=== PATIENT | female | born 2000 | race Caucasian/White ===

== ENCOUNTER → 2018-02-16 | Outpatient (CLI) | payer OTHER ==
[2018-02-16 15:11] LABS: BASO % 0.3 % (0.0-1.0); EOS # 0.1 10^3/uL (0.0-0.50); EOS % 0.8 % (0.0-3.0); HEMATOCRIT 37.2 % (36.0-47.0); HEMOGLOBIN 12.5 g/dl (12.0-15.5); IMMATURE GRANULOCYTE % 0.5 % (0-3.0); LYMPH # 1.9 10^3/uL (1.5-6.5); LYMPH % 19.2 % (24.0-44.0); MEAN CORPUSCULAR HEMOGLOBIN 28.7 pg (27.0-33.0); MEAN CORPUSCULAR HGB CONC 33.6 g/dl (32.0-36.5); MEAN CORPUSCULAR VOLUME 85.5 fl (80.0-96.0); MONO # 0.8 10^3/uL (0.0-0.8); MONO % 7.8 % (0.0-5.0); NEUTROPHILS # 7.1 10^3/uL (1.8-7.7); NEUTROPHILS % 71.4 % (36.0-66.0); PLATELET COUNT, AUTOMATED 311 10^3/uL (150-450); RED BLOOD COUNT 4.35 10^6/uL (4.00-5.40); RED CELL DISTRIBUTION WIDTH 12.9 % (11.5-14.5)
[2018-02-16 16:50] LABS: CHLAMYDIA DNA AMPLIFICATION NEGATIVE (NEGATIVE); GC DNA AMPLIFICATION NEGATIVE (NEGATIVE)
[2018-02-16 17:06] LABS: HBsAg Prenatal NEGATIVE (NEGATIVE); HIV 1&2 SCREEN CENTAUR NEGATIVE (NEGATIVE); RUBELLA IgG QUALITATIVE IMMUNE (IMMUNE)
[2018-02-16 17:06] LABS: HEPATITIS C VIRUS ABY INDEX 0.1 INDEX (<0.8)
== END ==
LOC: M LAB 14:22
DX: Z34.81 Encounter for supervision of other normal pregnancy, first trimester (principal); Z3A.09 9 weeks gestation of pregnancy; Z36.89 Encounter for other specified antenatal screening
CPT/HCPCS: 86762

== ENCOUNTER → 2018-03-30 | Outpatient (CLI) | payer OTHER ==
--- NOTE | 2018-03-30 15:56 | REP ---
Obstetric sonography: History: Supervision of for anatomy. Findings: Scanning through the gravid uterus demonstrates a viable single intrauterine gestation in oblique, head to the maternal right lie. motion is observed and heart rate is recorded at 152 beats per minute. An anterior grade 1 placenta is seen without evidence of previa. Amniotic fluid is subjectively normal. Closed cervical length is measured at 4.6 cm, viewed transabdominally. No extrauterine abnormalities observed. There are small bilateral choroid plexus cysts. No other anomaly is seen. Face and profile, lungs, four-chamber heart and outflow tract views are less than optimally seen due to position. The following additional anatomic structures are identified and felt to be unremarkable: cranium, cavum, cerebellum and posterior fossa, diaphragm, left-sided stomach, abdominal wall cord insertion, three-vessel umbilical cord, kidneys and bladder, spine, upper and lower extremities. Biometry chart: BPD 4.4 cm = 19 weeks 3 days Head circumference 17.1 cm = 19 weeks 5 days Abdominal circumference 14.4 cm = 19 weeks 5 days Femur length 3.1 cm = 19 weeks 5 days Humeral length 2.9 cm = 19 weeks 3 days HC/AC ratio normal 1.19. Cephalic index normal 0.71. Estimated weight 308 grams, 0 pounds 10 ounces, 55th percentile for 19 weeks 3 days. Impression: Viable single intrauterine gestation at 19 weeks 3 days by today's composite sonographic criteria. CHARISSA by today's sonography August 21, 2018. anatomic survey is less than complete regarding the face, heart and lungs. There are small bilateral choroid plexus cysts. Electronically Signed by Alton Beltran MD 03/30/2018 08:01 P
== END ==
LOC: M RAD 12:24
PROVIDERS: ATTEND Advanced Practice Midwife
DX: Z36.9 Encounter for antenatal screening, unspecified (principal); Z3A.19 19 weeks gestation of pregnancy

== ENCOUNTER → 2018-05-02 | Outpatient (CLI) | payer OTHER ==
--- NOTE | 2018-05-03 05:18 | REP ---
Clinical: Anatomical evaluation. Comparison: 03/30/2018 . Findings: Examination demonstrates a single live intrauterine in transverse (head to maternal right) presentation. motion is identified by technologist. Placenta is noted anterior and grade there are grade 1 without evidence for placenta previa or abruption. Amniotic fluid volume is normal. Cervix measures 5.7 cm in length and appears closed. No evidence for nuchal cord. Gestational age by LMP 23 weeks 0 days with CHARISSA 08/29/2018 . Gestational age by current measurements 24 weeks 3-day with CHARISSA is 08/19/2018 . FHR equals 155 beats per minute. Estimated weight 687 grams ( 89th percentile). Anatomical assessment demonstrates normal structures including cranium, cavum, cerebellum/posterior fossa, facial features, lungs, four-chamber heart/ventricular outflow tracts, diaphragm, stomach, cord insertion/three-vessel cord, kidneys/bladder, spine, and extremities. Note is made of small cord plexus cysts. Impression: 1. Single live intrauterine in transverse lie demonstrating appropriate interval growth. 2. In conjunction with prior examination anatomical assessment is relatively complete and normal. However, small choroid plexus cysts cannot be excluded. Electronically Signed by Montez Sullivan MD 05/03/2018 05:09 A
== END ==
LOC: M RAD 10:39
PROVIDERS: ATTEND Obstetrics & Gynecology
DX: O32.2XX0 Maternal care for transverse and oblique lie, not applicable or unspecified (principal); Z36.2 Encounter for other antenatal screening follow-up; Z3A.23 23 weeks gestation of pregnancy

== ENCOUNTER → 2018-06-07 | Outpatient (CLI) | payer OTHER ==
[2018-06-07 15:55] LABS: HEMATOCRIT 32.8 % (36.0-47.0); MEAN CORPUSCULAR HEMOGLOBIN 30.3 pg (27.0-33.0); MEAN CORPUSCULAR HGB CONC 33.5 g/dl (32.0-36.5); MEAN CORPUSCULAR VOLUME 90.4 fl (80.0-96.0); PLATELET COUNT, AUTOMATED 253 10^3/uL (150-450); RED BLOOD COUNT 3.63 10^6/uL (4.00-5.40); WHITE BLOOD COUNT 11.4 10^3/uL (4.0-10.0)
== END ==
LOC: M LAB 14:31
PROVIDERS: ATTEND Advanced Practice Midwife
DX: Z34.02 Encounter for supervision of normal first pregnancy, second trimester (principal); Z3A.00 Weeks of gestation of pregnancy not specified

== ENCOUNTER → 2018-07-30 | Outpatient (REF) | payer OTHER | LOC: M LAB REF 17:16 | PROVIDERS: ATTEND Obstetrics & Gynecology | DX: Z34.03 Encounter for supervision of normal first pregnancy, third trimester (principal); Z3A.00 Weeks of gestation of pregnancy not specified ==

== ENCOUNTER 2018-08-27 02:28 | Inpatient (IN) | payer OTHER ==
[2018-08-27] VITALS (32 sets, daily range): BP systolic 98–138; BP diastolic 50–85
[~2018-08-27] VITALS: Ht 160 cm; Wt 113.0 kg
[2018-08-27] MEDS ORDERED: PENICILLIN G POTASSIUM IV 5 MU in D5W MINI-BAG PLUS 100 ML IV STA (03:14)
[2018-08-27] MEDS ORDERED: LACTATED RINGER'S 1000 ML IV STA (03:14)
[2018-08-27 03:34] LABS: HEMATOCRIT 35.2 % (36.0-47.0); HEMOGLOBIN 11.7 g/dl (12.0-15.5); MEAN CORPUSCULAR HEMOGLOBIN 30.7 pg (27.0-33.0); MEAN CORPUSCULAR HGB CONC 33.2 g/dl (32.0-36.5); MEAN CORPUSCULAR VOLUME 92.4 fl (80.0-96.0); PLATELET COUNT, AUTOMATED 235 10^3/uL (150-450); RED BLOOD COUNT 3.81 10^6/uL (4.00-5.40); WHITE BLOOD COUNT 12.3 10^3/uL (4.0-10.0)
[2018-08-27] MEDS ORDERED: FENTANYL 2MCG/ML ROPIVACAINE 0.2% IN 0.9% NACL 100ML IVBAG As Ordered ONE (04:13)
[2018-08-27] MEDS ORDERED: LACTATED RINGER'S 1000 ML IV PRN (04:45)
[2018-08-27] MEDS ORDERED: diphenhydrAMINE INJ 50MG/ML VIAL (J1200) IV PRN ×2 (04:45→21:05)
[2018-08-27] MEDS: FENTANYL/ROPIVACAINE/NACL BAG 100 ML EPIDURAL SCH ×2 (04:45→16:07)
[2018-08-27] MEDS ORDERED: EPIDURAL/PCA KEYS XX PRN (04:45)
[2018-08-27] MEDS ORDERED: ePHEDrine SULFATE 25 MG/5 ML(5MG/ML) SYRINGE IV PRN (04:45)
[2018-08-27] MEDS ORDERED: REFRIGERATOR IV KEYS XX PRN (04:45)
[2018-08-27] MEDS ORDERED: ONDANSETRON 4MG/2ML VIAL (J2405) IV PRN ×4 (04:45→22:00)
[2018-08-27] MEDS ORDERED: NALOXONE INJ 0.4 MG/1 ML VIAL (J2310) IV PRN ×3 (04:45→21:05)
[2018-08-27] MEDS ORDERED: ePHEDrine SULFATE 25 MG/5 ML(5MG/ML) SYRINGE As Ordered ONE (05:09)
[2018-08-27] MEDS: EPIDURAL COMMENT XX SCH ×3 (05:10→05:21)
[2018-08-27] MEDS: LR 1,000 ML IV SCH ×4 (05:18→18:18)
[2018-08-27] MEDS ORDERED: BICITRA 30ML SOLN UDC PO SCH (06:00)
[2018-08-27] MEDS: PENICILLIN G POTASSIUM IV 2.5 MU in APPROPRIATE DILUENT 1 EA IV SCH ×3 (07:17→15:40)
--- NOTE | 2018-08-27 08:22 | HPE ---
DATE OF ADMISSION: 08/27/2018 18-year-old female 39 and 5/7 weeks gestation by LMP consistent with a 9 week ultrasound. EDC 08/29/2018 presents with regular contractions every 2-3 minutes starting at 1:30 am on the day of admission. Contractions increased in strength and denies vaginal bleeding. She denies loss of fluid. COURSE: The patient's care was initiated at 9 weeks gestation on 01/26/2018. Her blood pressure 114/68, weight 208 pounds. course was unremarkable. MEDICAL HISTORY: Noncontributory. SURGICAL HISTORY: None. ALLERGIES: None. SOCIAL HISTORY: The patient lives in [place]. The father of the baby is involved. Denies alcohol or drug use. FAMILY HISTORY: Noncontributory. PHYSICAL EXAMINATION: Blood pressure 130/80, pulse 80. Appears uncomfortable. Head and neck exam normal. Lungs are clear. Heart is regular rate and rhythm. Abdomen nontender and gravid. heart tones category 1. Sterile vaginal exam 3 cm, 100% -2 posterior soft vertex. Traction every 2-4 minutes. Extremities nontender. LABS: Blood type A positive, rubella immune, RPR nonreactive. GBS positive 07/2018. ASSESSMENT: 18-year-old G1 at 39 and 5/7 weeks gestation who presents in labor. PLAN: Patient is admitted on 08/27/2018. Plan antibiotics for GBS prophylaxis.
[2018-08-27] MEDS ORDERED: OXYTOCIN 30 UNITS IN 0.9% NaCl 500ML IV BAG (J2590) As Ordered ONE ×2 (09:33→21:48)
[2018-08-27] MEDS ORDERED: OXYTOCIN DRIP 30 UNITS in APPROPRIATE DILUENT 1 EA IV SCH ×2 (09:45→21:33)
--- NOTE | 2018-08-27 09:51 | IPNPDOC ---
Obstetrical Progress Note Date of Service Aug 27, 2018 Subjective Patient reports she is comfortable with her epidural. She does report feeling some rectal pressure. Objective Vital Signs Date Time Temp Pulse Resp B/P (MAP) Pulse Ox O2 Delivery O2 Flow Rate FiO2 08/27/18 08:33 71 20 112/54 (73) 08/27/18 07:31 96.0 08/27/18 07:19 98.7 Assessment Heart Rate (FHR): 150 Variability: Moderate Decelerations: None Heart Rate Tracing: Category I Tocometer Contractions: Yes Frequency: every 2-5 min. Sterile Vaginal Examination Dilation: 5 cm Effacement (%): 100% Station: -1 Postion/Presentation: Cephalic presentation Assessment and Plan EGA at Admission: 39.5 Status: Reassuring Group B Streptococcus: Positive Anticipate: Vaginal Delivery Additional Comments IV Pitocin ordered and to be started after discussing it with patient. JASIEL ROY CNM Aug 27, 2018 09:51
--- NOTE | 2018-08-27 16:23 | IPNPDOC ---
Obstetrical Progress Note Date of Service Aug 27, 2018 Subjective Patient reports pressure with contractions. The pressure is more intense now per patient. Objective Vital Signs Date Time Temp Pulse Resp B/P (MAP) Pulse Ox O2 Delivery O2 Flow Rate FiO2 08/27/18 14:33 99.5 81 16 127/61 (83) 96 08/27/18 07:31 96.0 Assessment Heart Rate (FHR): 130 Variability: Moderate Accelerations: Positive Heart Rate Tracing: Category I Tocometer Contractions: Yes Frequency: regular, every 2-5 min. Sterile Vaginal Examination Dilation: 5 cm Effacement (%): 100% Station: -2 Postion/Presentation: Cephalic presentation Assessment and Plan Status: Reassuring Group B Streptococcus: Positive Additional Comments Due to no cervical change and IUPC was placed. IV Pitocin was turned off initially after starting it this morning due to decelerations. It is to be restarted again. Anesthesia to be consulted for an increase in her epidural rate due. It was decreased due to patient having a difficult time maintaining blood pressures. Will reassess her again in 3 hours. JASIEL ROY CNM Aug 27, 2018 16:23
--- NOTE | 2018-08-27 19:24 | IPNPDOC ---
Obstetrical Progress Note Date of Service Aug 27, 2018 Subjective Patient still feeling pressure with contractions. Denies abdominal pain with contractions. Objective Vital Signs Date Time Temp Pulse Resp B/P (MAP) Pulse Ox O2 Delivery O2 Flow Rate FiO2 08/27/18 18:20 99.7 80 20 138/65 (89) 94 08/27/18 07:31 96.0 Assessment Heart Rate (FHR): 134 Variability: Minimal to moderate Accelerations: Positive Decelerations: Variable Heart Rate Tracing: Category II Tocometer Contractions: Yes Frequency: other (2-4 minutes) Sterile Vaginal Examination Dilation: 5 cm (5-6. Can stretch patient to 6 cm) Effacement (%): 100% Station: -2 Postion/Presentation: Cephalic presentation Assessment and Plan Group B Streptococcus: Positive Anticipate: Section Additional Comments Reviewed findings with patient and family. Patient's IV Pitocin is a 6 mu/hr. Reviewed no changes with IV Pitocin and inability for baby to tolerate augmentation. IV Pitocin turned off. Dr. Holcomb called in for evaluation. JASIEL ROY CNM Aug 27, 2018 19:24
[2018-08-27] MEDS ORDERED: AZITHROMYCIN INJ 500 MG, VIAL MATE ADAPTER 1 EACH in D5W 250 ML IV ONE (19:30)
--- NOTE | 2018-08-27 20:14 | NUR ---
Progress Note Consulted on this patient secondary to diagnosis of arrest of dilation. Inability to augment labor secondary to Cat II FHR while administering Pitocin. Pitocin is currently off and FHR Cat I. Pt offered PLTCS for arrest of dilation and she agrees to proceed in this fashion. R/b/a/i of PLTCS were reviewed and informed consent obtained. Preparations for the OR being made. Salvador Holcomb DO
[2018-08-27] MEDS ORDERED: OXYTOCIN INJ 10 UNITS/ML VIAL (J2590) As Ordered ONE (20:35)
[2018-08-27] MEDS ORDERED: LIDOCAINE 2% W/EPIN INJ 20ML **PRES FREE As Ordered ONE (20:35)
[2018-08-27] MEDS ORDERED: MORPHINE PRES-FREE INJ 10 MG/10 ML VIAL (J2274) As Ordered ONE (21:01)
[2018-08-27] MEDS ORDERED: NALBUPHINE HCL 10 MG/ML AMP (J2300) IV PRN ×2 (21:05→22:00)
[2018-08-27] MEDS ORDERED: METOCLOPRAMIDE INJ 10MG/2ML VIAL (J2765) IV PRN ×2 (21:05→21:45)
[2018-08-27] MEDS ORDERED: LR 1,000 ML IV SCH (21:33)
--- NOTE | 2018-08-27 21:41 | NUR ---
Operative Note Date of procedure: 08/27/2018 Procedure: Primary low-transverse section Anesthesia: Epidural with Duramorph Preoperative diagnosis: Arrest of dilation, full term gestation Postoperative diagnosis: Same Indication: Arrest of dilation, inability to augment labor secondary to a persistent category 2 heart rate tracing Primary surgeon: Mark Holcomb D.O., Kamala Black Secured Entrance Monitor: Samara Osorio CNM (essential for surgical site exposure and assistance with delivery. Estimated blood loss:800 ml IV fluids administered: 1500 ml crystalloid Drains: Gutierrez catheter. Urine output:150 ml data: Apgars 9 and 9. Birthweight 3690g, 8lbs 2oz. Preoperative/prophylactic antibiotics: Ancef 2 g IV (given within 30 minutes prior to surgical start time). Intraoperative findings: OP presentation Specimen(s): none Procedure: The patient was counseled and consented on the risks, benefits, indications and alternatives of the procedure. Informed consent was obtained and placed in the c ma. She was taken to the operating room with an IV running. She was placed on the operating table. Spinal anesthesia was administered without any difficulty and found to be adequate. She was placed in the dorsal supine position with a leftward tilt. Sequential compression devices were placed on the lower extremities. A Gutierrez catheter was placed under sterile conditions. She was sterilely prepped and draped. A surgical timeout was performed per protocol. Spinal anesthesia was again found to be adequate. Using the 10 blade a Pfannenstiel incision was performed. The 10 blade was used to dissect down to the level of the rectus sheath fascia. The rectus sheath fas makenna was incised at the midline, and the fascial incision was extended with Larry scissors. Jennifer clamps were used to grasp the superior and inferior aspect of the fascial incision and the rectus muscle bellies were dissected off sharply and bluntly. The midline was identified and the rectus muscle bellies were manually . The peritoneum was identified and clamped with hemostats and elevated. The peritoneum was then incised with Metzenbaum scissors. Entry into the intraperitoneal cavity was achieved. The peritoneal opening was extended with manual stretch . There was good visualization of both the bladder and the lower uterine segment. The Mobius retractor was placed. The vesicouterine peritoneum was dissected with Metzenbaum scissors and blunt dissection. Bladder retractor was repositioned. A low transverse uterine incision was made with a new 10 blade. The hysterotomy was extended with manual stretch. The amniotic sac was protruding and then artificially ruptured. Clear amniotic fluid was noted. The baby's head delivered through the hysterotomy with ease. The remainder of the body delivered with ease. The cord was doubly clamped and cut and the baby was handed off to awaiting care. See data above. The placenta was manually removed and noted to be fully intact. The uterus was kept in situ. The intrauterine cavity was cleared of all clot and debris with a laparotomy sponge. The hysterotomy was closed with 0 Vicryl in running, locked fashion. A second imbricating closure was performed over the initial layer closure using 0 Vicryl. The hysterotomy was noted to be hemostatic. The posterior cul-de-sac was irrigated and cleared of all clot and debris. The paracolic gutters were cleared of all clot and debris with damp laparotomy sponges. The hysterotomy is reinspected and noted to be hemostatic. Sponge, needle and instrument counts were correct. The peritoneum was closed with 3-0 Vicryl in running fashion. The rectus muscle bellies were reapproximated with 3-0 Vicryl with a series of interrupted sutures. The rectus muscle bellies were noted to be hemostatic. The fascia was closed with 0 Vicryl in running fashion. Sponge, needle and instrument counts were again correct. The subcutaneous layer was irrigated. Small subcutaneous bleeders were cauterized with Bovie. The subcutaneous layer was reapproximated with 3-0 Vicryl in running fashion. The skin was closed with 3-0 Monocryl in subcuticular fashion. A bandage was placed over the closed incision. The final sponge, instrument and needle count was correct. She tolerated the entire procedure very well. She was transferred to the PACU in good and stable condition. Dr. Mark Holcomb D.O., F.A.C.O.G
[2018-08-27] MEDS ORDERED: RHOGAM 300 MCG (1500 IU) INJ (J2790) IM SCH (21:45)
[2018-08-27] MEDS ORDERED: PERCOCET 5MG/325MG TAB PO PRN (21:45)
[2018-08-27] MEDS ORDERED: MEASLES,MUMPS,RUBELLA VACCINE INJ (MMR-II) (90707) SC SCH (21:45)
[2018-08-27] MEDS ORDERED: MEPERIDINE INJ 25 MG/ML VIAL (J2175) IV PRN (22:00)
[2018-08-27] MEDS ORDERED: KETOROLAC 30 MG/ML VIAL (J1885) IV PRN (22:00)
[2018-08-27] MEDS ORDERED: fentaNYL 100 MCG/2 ML INJECTION (J3010) IV PRN (22:00)
[2018-08-27] MEDS ORDERED: KETOROLAC 30 MG/ML VIAL (J1885) As Ordered ONE (22:26)
[2018-08-27] MEDS: KETOROLAC 30 MG/ML VIAL (J1885) IV SCH (22:31)
[2018-08-27] MEDS: PERCOCET 5MG/325MG TAB PO PRN (23:39)
[2018-08-28] VITALS (8 sets, daily range): BP systolic 105–142; BP diastolic 51–62
[2018-08-28] MEDS: KETOROLAC 30 MG/ML VIAL (J1885) IV SCH ×3 (04:30→15:45)
[2018-08-28 07:05] LABS: HEMATOCRIT 24.9 % (36.0-47.0); MEAN CORPUSCULAR HEMOGLOBIN 31.2 pg (27.0-33.0); MEAN CORPUSCULAR HGB CONC 33.3 g/dl (32.0-36.5); MEAN CORPUSCULAR VOLUME 93.6 fl (80.0-96.0); PLATELET COUNT, AUTOMATED 161 10^3/uL (150-450); RED BLOOD COUNT 2.66 10^6/uL (4.00-5.40); WHITE BLOOD COUNT 11.9 10^3/uL (4.0-10.0)
[2018-08-28 07:14] LABS: HEMOGLOBIN 8.3 g/dl (12.0-15.5)
[2018-08-28] MEDS: DOCUSATE SODIUM 100 MG CAP PO SCH ×2 (09:47→21:49)
[2018-08-28] MEDS: PRENATAL VITAMINS CHEWABLE TABLET PO SCH (09:47)
[2018-08-28] MEDS ORDERED: KETOROLAC 30 MG/ML VIAL (J1885) IM ONE (16:15)
[2018-08-29] MEDS: IBUPROFEN 800 MG TAB PO SCH ×3 (00:50→17:50)
[2018-08-29 02:19] VITALS: BP 125/58
[2018-08-29 06:30] VITALS: BP 109/64
[2018-08-29] MEDS: DOCUSATE SODIUM 100 MG CAP PO SCH ×2 (08:59→21:07)
[2018-08-29] MEDS: PRENATAL VITAMINS CHEWABLE TABLET PO SCH (08:59)
--- NOTE | 2018-08-29 09:27 | NUR ---
Progress Note POD#2 Status post primary low transverse section, uncomplicated. Subjective Pain is well controlled. Lochia is decreasing and minimal. Voiding spontaneously. Tolerating a regular diet. Ambulating without any assistance. Denies any subjective fever, chills, nausea, vomiting, headache, visual changes, shortness of breath, chest pain. Breast feeding. Objective Vitals: Normotensive, normal heart rate, afebrile, adequate urine output. Heart: regular, rate, and rhythm. no murmurs/gallops/rubs Lungs: clear to auscultation bilaterally, no wheezes/crackles/rales/ronchi Abd: soft, nontender, nondistended, uterine fundus is 2cm below umbilicus and firm Incision: clean, dry, intact Ext: no significant edema, nontender, negative Karla's bilaterally. Assessment/Plan: Postoperative day 2 status post primary low transverse section. Recovering well. Hemodynamically stable, afebrile, good pain control. -Routine care -Discharge to home tomorrow. -Routine infectious, fever, pain, and bleeding precautions reviewed -Incision/wound care precautions reviewed. Dr. Mark Holcomb, Briana.O., F.A.C.O.G.
[2018-08-29] MEDS ORDERED: PERCOCET PO (10:00)
[2018-08-29] MEDS ORDERED: IBUP80TA PO (10:00)
[2018-08-29] MEDS ORDERED: COLA100C5 PO (10:00)
[2018-08-29 17:53] VITALS: BP 126/78
[2018-08-30] MEDS: IBUPROFEN 800 MG TAB PO SCH ×2 (00:20→08:30)
[2018-08-30 06:13] VITALS: BP 120/65
--- NOTE | 2018-08-30 07:07 | DSES ---
DATE OF ADMISSION: 08/27/2018 DATE OF DISCHARGE: DISCHARGE DIAGNOSIS: Primary section postoperative day #3 stable condition. SURGEON: Dr. Mark Holcomb AESTHETICIAN: Melinda Osorio, certified nurse dry kiln worker. HISTORY: Katja is a 18-year-old, 1, para 1-0-0-1 now, who was admitted to labor and delivery in labor. She underwent a primary section on 08/27/2018 due to arrest of dilation in direct occiput posterior (OP) presentation. Her surgery was complicated by an 800 mL blood loss. She delivered a live male weighing 3690 grams, 8 pounds and 2 ounces, 9 and 9. OBJECTIVE: Temperature 98, pulse 68, respirations 16, blood pressure (BP) is 120/65. She is alert and oriented times three. Preoperative CBC with a hemoglobin of 11.6, hematocrit 35.2 and platelets 235. Postoperative CBC with a hemoglobin of 8.3, hematocrit 24.9 and platelets 161. She does deny headache, dizziness or heart palpitations. She has been out of bed for self care, frederick care and infant care. She is tolerating by mouth fluids and a regular diet. She is voiding without difficulty and passing flatus. Her pain has been well controlled with by mouth pain medications. PLAN: Discharge the patient to home today. She is to follow up at [facility] for a 2-week incision check and an 8-week visit. Pain medications have been E-prescribed by Dr. Holcomb to her pharmacy for ibuprofen 800 mg by mouth every 8 hours as needed and Percocet one tablet every 4 hours as needed for pain. I did review discharge instructions that include breast care, incision care, frederick care, pelvic rest, activity and lifting restrictions, access to care, and other danger signs which to report to her provider.
[2018-08-30] MEDS: PRENATAL VITAMINS CHEWABLE TABLET PO SCH (08:28)
[2018-08-30] MEDS: DOCUSATE SODIUM 100 MG CAP PO SCH (08:28)
[2018-08-30] MEDS: PERCOCET 5MG/325MG TAB PO PRN (08:29)
== END 2018-08-30 12:50 | disposition home or self-care (01) | DRG 540 ==
LOC: M LDO 02:28 → M LDI 03:13 → M OBS 23:11
PROVIDERS: ADMIT Specialist; ATTEND Specialist
PROC: 10D00Z1 Extraction of Products of Conception, Low, Open Approach (ICD-10-PCS; principal; 2018-08-27 20:15)
DX: O62.0 Primary inadequate contractions (principal); Z37.0 Single live birth; Z3A.39 39 weeks gestation of pregnancy; O76 Abnormality in fetal heart rate and rhythm complicating labor and delivery

== ENCOUNTER 2018-12-02 09:12 | Emergency (ER) | payer OTHER ==
[~2018-12-02] VITALS: Ht 162.6 cm; Wt 102.1 kg
[~2018-12-02 09:12] MED LIST: COLA100C5 PO; IBUP80TA PO; PERCOCET PO
[2018-12-02] MEDS ORDERED: PREVTAB2 PO (09:20)
[2018-12-02 10:32] LABS: BASO % 0.3 % (0.0-1.0); EOS # 0.3 10^3/uL (0.0-0.5); HEMATOCRIT 35.6 % (36.0-47.0); HEMOGLOBIN 11.6 g/dl (12.0-15.5); LYMPH # 1.7 10^3/uL (1.5-5.0); LYMPH % 19.3 % (24.0-44.0); MEAN CORPUSCULAR HGB CONC 32.6 g/dl (32.0-36.5); MEAN CORPUSCULAR VOLUME 85.8 fl (80.0-96.0); MONO # 0.8 10^3/uL (0.0-0.8); NEUTROPHILS # 5.9 10^3/uL (1.5-8.5); NEUTROPHILS % 67.9 % (36.0-66.0); PLATELET COUNT, AUTOMATED 350 10^3/uL (150-450); RED BLOOD COUNT 4.15 10^6/uL (4.00-5.40); WHITE BLOOD COUNT 8.7 10^3/uL (4.0-10.0)
[2018-12-02 10:48] LABS: BLOOD UREA NITROGEN 12 MG/DL (7-18); CALCIUM LEVEL 9.1 MG/DL (8.5-10.1); CARBON DIOXIDE LEVEL 25 MEQ/L (21-32); CHLORIDE LEVEL 107 MEQ/L (98-107); CREATININE FOR GFR 0.69 MG/DL (0.55-1.30); GLUCOSE, FASTING 79 MG/DL (70-100); POTASSIUM SERUM 4.4 MEQ/L (3.5-5.1); SODIUM LEVEL 141 MEQ/L (136-145)
--- NOTE | 2018-12-02 12:55 | REP ---
PELVIC ULTRASOUND: Real-time sonographic evaluation of the pelvis is performed utilizing transabdominal and endovaginal technique. The bladder measures 10.8 x 7.2 x 7.7 cm. The uterus measures 11.7 x 4.4 x 5.6 cm. Endometrium is thickened and heterogeneous with a maximum AP diameter of 19 mm. Left uterine fibroid measures 1.4 x 0.7 x 1.3 cm. scar is seen in the anterior lower uterine segment. Right ovary measures 4.9 x 1.3 x 2.2 cm and left ovary 4.5 x 2.0 x 2.6 cm. There is a complex dominant follicle in the left ovary 2.4 x 1.5 x 1.1 cm. There is no torsion of either ovary with duplex Doppler evaluation. There is moderate free fluid in the cul-de-sac. IMPRESSION: Thickened heterogeneous endometrium 19 mm in diameter. Left uterine fibroid 1.4 cm. Complex dominant follicle left ovary 2.4 cm, without evidence of torsion. Moderate free fluid. Electronically Signed by Luis Dowling MD 12/02/2018 06:03 P
[2018-12-02 13:21] VITALS: BP 123/50
--- NOTE | 2018-12-03 19:49 | ED PDOC ---
Post-Departure Follow-Up dr denise faxed formal report of pelvic us for fu Madisyn Dickson MD Dec 03, 2018 19:49
== END 2018-12-02 13:27 | disposition home or self-care (01) ==
LOC: M ED 09:12
DX: R10.2 Pelvic and perineal pain (principal); D25.9 Leiomyoma of uterus, unspecified; N83.02 Follicular cyst of left ovary; Z79.3 Long term (current) use of hormonal contraceptives

== ENCOUNTER → 2021-08-04 | Outpatient (CLI) | payer OTHER ==
[~2021-08-04] MED LIST changes: +PREVTAB2 PO
[2021-08-04 15:50] LABS: HEMATOCRIT 34.9 % (36.0-47.0); HEMOGLOBIN 11.8 g/dl (12.0-15.5); MEAN CORPUSCULAR HGB CONC 33.8 g/dl (32.0-36.5); MEAN CORPUSCULAR VOLUME 85.7 fl (80.0-96.0); PLATELET COUNT, AUTOMATED 257 10^3/uL (150-450); RED BLOOD COUNT 4.07 10^6/uL (4.00-5.40); WHITE BLOOD COUNT 6.9 10^3/uL (4.0-10.0)
[2021-08-04 16:24] LABS: GLUCOSE CHALLENGE TEST 1 HOUR 124 MG/DL (LESS THAN 140)
[2021-08-04 17:19] LABS: HIV 1&2 SCREEN CENTAUR NEGATIVE (NEGATIVE)
[2021-08-04 19:36] LABS: HEPATITIS C VIRUS ABY INDEX 0.1 INDEX (<0.8)
== END ==
LOC: M PLALAB 12:15
PROVIDERS: ATTEND Obstetrics & Gynecology
DX: O34.211 Maternal care for low transverse scar from previous cesarean delivery (principal)

== ENCOUNTER → 2021-09-03 | Outpatient (CLI) | payer OTHER | LOC: M WHC 13:22 | PROVIDERS: ATTEND Obstetrics & Gynecology | DX: Z36.2 Encounter for other antenatal screening follow-up (principal); Z3A.19 19 weeks gestation of pregnancy ==

== ENCOUNTER → 2021-09-20 | Outpatient (CLI) | payer OTHER | LOC: M WHC 13:56 | PROVIDERS: ATTEND Obstetrics & Gynecology | DX: Z36.2 Encounter for other antenatal screening follow-up (principal); O34.211 Maternal care for low transverse scar from previous cesarean delivery; Z3A.22 22 weeks gestation of pregnancy ==

== ENCOUNTER → 2021-10-26 | Outpatient (CLI) | payer OTHER ==
[2021-10-26 18:24] LABS: HEMATOCRIT 33.2 % (36.0-47.0); HEMOGLOBIN 10.7 g/dl (12.0-15.5); MEAN CORPUSCULAR HEMOGLOBIN 28.9 pg (27.0-33.0); MEAN CORPUSCULAR HGB CONC 32.2 g/dl (32.0-36.5); MEAN CORPUSCULAR VOLUME 89.7 fl (80.0-96.0); PLATELET COUNT, AUTOMATED 294 10^3/uL (150-450); WHITE BLOOD COUNT 10.9 10^3/uL (4.0-10.0)
[2021-10-26 19:11] LABS: GC DNA AMPLIFICATION NEGATIVE (NEGATIVE)
== END ==
LOC: M PLALAB 14:01
PROVIDERS: ATTEND Obstetrics & Gynecology
DX: Z36.89 Encounter for other specified antenatal screening (principal); Z3A.24 24 weeks gestation of pregnancy

== ENCOUNTER → 2021-12-30 | Outpatient (REF) | payer OTHER | LOC: M SFHCWAGY 09:44 | PROVIDERS: ATTEND Obstetrics & Gynecology | DX: Z36.85 Encounter for antenatal screening for Streptococcus B (principal); Z3A.36 36 weeks gestation of pregnancy ==

== ENCOUNTER → 2022-01-21 | Outpatient (CLI) | payer OTHER | LOC: M WHC 14:09 | PROVIDERS: ATTEND Advanced Practice Midwife | DX: O26.843 Uterine size-date discrepancy, third trimester (principal) ==

== ENCOUNTER 2022-01-29 17:57 | Inpatient (IN) | payer OTHER ==
[~2022-01-29] VITALS: Ht 162.6 cm; Wt 121.9 kg
[2022-01-29] VITALS (18 sets, daily range): BP systolic 90–134; BP diastolic 44–65
[2022-01-29] MEDS ORDERED: PRENTAB9 PO (18:23)
[2022-01-29] MEDS ORDERED: HOME MED LIST COMPLETE! XX SCH (18:40)
[2022-01-29 19:23] LABS: HEMOGLOBIN 11.1 g/dl (12.0-15.5); MEAN CORPUSCULAR HEMOGLOBIN 28.5 pg (27.0-33.0); MEAN CORPUSCULAR HGB CONC 32.6 g/dl (32.0-36.5); MEAN CORPUSCULAR VOLUME 87.2 fl (80.0-96.0); PLATELET COUNT, AUTOMATED 276 10^3/uL (150-450)
[2022-01-29] MEDS ORDERED: LIDOCAINE 1% MDV 20ML VIAL INFIL PRN (19:25)
[2022-01-29] MEDS ORDERED: OXYTOCIN DRIP 30 UNITS in IV 1 EA IV PRN (19:25)
[2022-01-29] MEDS ORDERED: OXYTOCIN DRIP 30 UNITS in IV 1 EA IV SCH (19:25)
[2022-01-29] MEDS: LR 1,000 ML IV SCH ×2 (19:29→22:51)
[2022-01-29] MEDS ORDERED: LR 500 ML IV PRN (22:35)
[2022-01-29] MEDS ORDERED: diphenhydrAMINE 50MG/ML VIAL IV PRN (22:35)
[2022-01-29] MEDS ORDERED: ONDANSETRON 4MG 2ML VIAL IV PRN (22:35)
[2022-01-29] MEDS ORDERED: EPIDURAL/PCA KEYS XX PRN (22:35)
[2022-01-29] MEDS ORDERED: ePHEDrine SULFATE 25 MG/5 ML(5MG/ML) SYRINGE IVP PRN (22:35)
[2022-01-29] MEDS ORDERED: NALOXONE INJ 0.4MG/1ML VIAL (J2310 PER 1MG) IV PRN (22:35)
[2022-01-29] MEDS: FENTANYL/ROPIVACAINE/NACL BAG 100 ML EPIDURAL SCH (22:50)
[2022-01-30] VITALS (28 sets, daily range): BP systolic 97–132; BP diastolic 48–65
[2022-01-30] MEDS: LR 1,000 ML IV SCH ×3 (03:17→16:24)
[2022-01-30] MEDS: FENTANYL/ROPIVACAINE/NACL BAG 100 ML EPIDURAL SCH (08:36)
[2022-01-30] MEDS: PRENATAL VITAMINS CHEWABLE TABLET PO SCH (09:00)
[2022-01-30] MEDS ORDERED: ceFAZolin SOD 2 GM in IV 1 EA IV ONE (10:25)
[2022-01-30] MEDS ORDERED: BICITRA 30ML SOLN UDC PO ONE (10:25)
[2022-01-30] MEDS ORDERED: AZITHROMYCIN INJ 500 MG, VIAL MATE ADAPTER 1 EACH in NS 250 ML IV ONE (10:25)
[2022-01-30] MEDS ORDERED: OXYTOCIN 30 UNITS IN 0.9% NaCl 500ML IV BAG (J2590) As Ordered ONE ×2 (11:22→11:58)
[2022-01-30] MEDS ORDERED: SODIUM BICARBONATE 8.4% INJ 50MEQ 50 ML VIAL As Ordered ONE (11:22)
[2022-01-30] MEDS ORDERED: LIDOCAINE 2% W/EPINEPHRINE 20ML VIAL **PRES FREE As Ordered ONE (11:22)
[2022-01-30] MEDS ORDERED: dexameTHASONE 4 MG/ML 1ML VIAL (J1100 PER 1MG) As Ordered ONE (11:22)
[2022-01-30] MEDS ORDERED: ONDANSETRON 4MG 2ML VIAL As Ordered ONE (11:22)
[2022-01-30] MEDS ORDERED: ACETAMINOPHEN 1000MG 100ML IV BAG As Ordered ONE (11:22)
[2022-01-30] MEDS ORDERED: METOCLOPRAMIDE INJ 10MG/2ML VIAL (J2765 PER 1) As Ordered ONE (11:22)
[2022-01-30] MEDS ORDERED: KETOROLAC 60MG 2ML VIAL As Ordered ONE (11:22)
[2022-01-30] MEDS ORDERED: MORPHINE PRES-FREE INJ 10 MG/10 ML VIAL As Ordered ONE (11:22)
[2022-01-30] MEDS ORDERED: ePHEDrine SULFATE 25 MG/5 ML(5MG/ML) SYRINGE As Ordered ONE (11:25)
[2022-01-30] MEDS ORDERED: PHENYLephrine 500MCG 5ML (100MCG/ML) SYRINGE As Ordered ONE (11:25)
[2022-01-30] MEDS ORDERED: RHOGAM 300 MCG (1500 IU) INJ (J2790) IM SCH (12:15)
[2022-01-30] MEDS ORDERED: ONDANSETRON 4MG 2ML VIAL IV PRN ×2 (12:15→12:30)
[2022-01-30] MEDS ORDERED: OXYTOCIN DRIP 30 UNITS in IV 1 EA IV SCH (12:15)
[2022-01-30] MEDS ORDERED: PERCOCET 5MG/325MG TAB PO PRN ×2 (12:15)
[2022-01-30] MEDS ORDERED: SIMETHICONE 80MG CHEW TAB PO PRN (12:15)
[2022-01-30] MEDS ORDERED: METHYLERGONOVINE MALEATE 0.2 MG/ML VIAL (J2210) IM ONE (12:25)
[2022-01-30] MEDS ORDERED: MEPERIDINE INJ 25 MG/ML VIAL (J2175) IV PRN (12:30)
[2022-01-30] MEDS ORDERED: HYDROMORPHONE HCL 0.5 MG/ 0.5 ML SYRINGE (J1170 PER 1) IV PRN (12:30)
[2022-01-30] MEDS ORDERED: METOCLOPRAMIDE INJ 10MG/2ML VIAL (J2765 PER 1) IV PRN (12:30)
[2022-01-30] MEDS ORDERED: NALOXONE INJ 0.4MG/1ML VIAL (J2310 PER 1MG) IV PRN ×2 (12:30)
[2022-01-30] MEDS ORDERED: diphenhydrAMINE 50MG/ML VIAL IV PRN (12:30)
[2022-01-30] MEDS ORDERED: oxyCODONE 5MG TAB PO PRN (12:30)
[2022-01-30] MEDS ORDERED: **NOTE PATIENT COMMENT** MISC XX SCH (12:30)
[2022-01-30] MEDS ORDERED: fentaNYL 100 MCG/2 ML INJECTION IV PRN (12:30)
[2022-01-30] MEDS: SLF 3 ML SYR IV SCH ×2 (16:24→20:30)
[2022-01-30] MEDS: KETOROLAC 30 MG/ML 1ML VIAL IV SCH (18:40)
[2022-01-30] MEDS ORDERED: IBUP80TA PO (19:45)
[2022-01-30] MEDS ORDERED: OXYC1TAB23 PO (19:45)
[2022-01-31] MEDS: LR 1,000 ML IV SCH (00:36)
[2022-01-31] MEDS: KETOROLAC 30 MG/ML 1ML VIAL IV SCH ×2 (00:36→05:58)
[2022-01-31 02:00] VITALS: BP 120/54
[2022-01-31] MEDS: SLF 3 ML SYR IV SCH (04:30)
[2022-01-31 06:00] VITALS: BP 107/47
[2022-01-31 06:47] LABS: HEMATOCRIT 24.5 % (36.0-47.0); MEAN CORPUSCULAR HEMOGLOBIN 29.9 pg (27.0-33.0); MEAN CORPUSCULAR HGB CONC 32.7 g/dl (32.0-36.5); MEAN CORPUSCULAR VOLUME 91.4 fl (80.0-96.0); PLATELET COUNT, AUTOMATED 201 10^3/uL (150-450); RED BLOOD COUNT 2.68 10^6/uL (4.00-5.40); WHITE BLOOD COUNT 12.2 10^3/uL (4.0-10.0)
[2022-01-31] MEDS: PRENATAL VITAMINS CHEWABLE TABLET PO SCH (09:24)
[2022-01-31 10:00] VITALS: BP 101/51
[2022-01-31 14:00] VITALS: BP 115/56
[2022-01-31] MEDS: IBUPROFEN 800 MG TAB PO SCH ×2 (14:41→22:08)
[2022-01-31 17:58] VITALS: BP 102/50
[2022-01-31 22:13] VITALS: BP 96/48
[2022-02-01 02:02] VITALS: BP 103/50
[2022-02-01] MEDS: IBUPROFEN 800 MG TAB PO SCH ×2 (05:18→14:06)
[2022-02-01 06:17] VITALS: BP 110/56
[2022-02-01] MEDS ORDERED: MEASLES,MUMPS,RUBELLA VACCINE INJ (MMR-II) (90707) SC.IMMUN ONE (09:00)
[2022-02-01] MEDS: PRENATAL VITAMINS CHEWABLE TABLET PO SCH (09:15)
== END 2022-02-01 15:00 | disposition home or self-care (01) | DRG 540 ==
LOC: M LDI 17:57 → M OBS 01-30 13:28
PROVIDERS: ADMIT Specialist; ATTEND Specialist
PROC: 10D00Z1 Extraction of Products of Conception, Low, Open Approach (ICD-10-PCS; principal; 2022-01-29)
PROC: 3E033VJ Introduction of Other Hormone into Peripheral Vein, Percutaneous Approach (ICD-10-PCS; 2022-01-29)
DX: O36.63X0 Maternal care for excessive fetal growth, third trimester, not applicable or unspecified (principal); O64.0XX0 Obstructed labor due to incomplete rotation of fetal head, not applicable or unspecified; O48.0 Post-term pregnancy; O34.211 Maternal care for low transverse scar from previous cesarean delivery; Z3A.40 40 weeks gestation of pregnancy; O62.0 Primary inadequate contractions; Z37.0 Single live birth; O66.41 Failed attempted vaginal birth after previous cesarean delivery

== ENCOUNTER → 2022-04-07 | Outpatient (REF) | payer OTHER ==
[~2022-04-07] MED LIST changes: +OXYC1TAB23 PO; +PRENTAB9 PO
== END ==
LOC: M LAB REF 21:14
PROVIDERS: ATTEND Physician Assistant
DX: J02.9 Acute pharyngitis, unspecified (principal)

== ENCOUNTER → 2022-08-24 | Outpatient (REF) | payer OTHER | LOC: M LAB REF 16:09 | PROVIDERS: ATTEND Physician Assistant | DX: J02.9 Acute pharyngitis, unspecified (principal) ==

== ENCOUNTER → 2024-09-16 | Outpatient (REF) | payer OTHER | LOC: M LAB REF 14:57 | PROVIDERS: ATTEND Nurse Practitioner Adult Health | DX: J03.90 Acute tonsillitis, unspecified (principal) ==

== ENCOUNTER → 2024-09-19 | Outpatient (CLI) | payer OTHER ==
[~2024-09-19] MED LIST changes: +ISOVUE-370 76% 100 ML VIAL As Ordered ONE
== END ==
LOC: M RAD 10:40
PROVIDERS: ATTEND Nurse Practitioner Adult Health
DX: J03.90 Acute tonsillitis, unspecified (principal)
CPT/HCPCS: 70491; Q9967

== ENCOUNTER 2025-01-13 10:27 | Day surgery (SDC) | payer OTHER ==
[~2025-01-13] VITALS: Ht 162.6 cm; Wt 130.6 kg
[~2025-01-13 10:27] MED LIST changes: +DEBL1TAB PO; +IBUP200C28 PO; -ISOVUE-370 76% 100 ML VIAL As Ordered ONE; +LIDOCAINE 2% 100 MG/5 ML SDV (FOR ANES.) As Ordered ONE; +MIDAZOLAM INJ 2 MG/2 ML VIAL As Ordered ONE; +ROCURONIUM BROMIDE 50MG/5ML VIAL As Ordered ONE
[2025-01-13] MEDS: SCOPOLAMINE 1MG TRANSDERMAL PATCH TOP ONE (11:06)
[2025-01-13] MEDS ORDERED: OXYMETAZOLINE 0.05% NASAL SPRAY As Ordered ONE (11:43)
[2025-01-13] MEDS ORDERED: ACETAMINOPHEN 1000MG/100ML IV BAG As Ordered ONE (12:03)
[2025-01-13] MEDS ORDERED: dexAMETHasone 4 MG/ML 1 ML VIAL As Ordered ONE (12:06)
[2025-01-13] MEDS ORDERED: SUGAMMADEX SODIUM 500 MG/5 ML VIAL As Ordered ONE (12:26)
[2025-01-13] MEDS ORDERED: HYDROMORPHONE HCL 0.5 MG/0.5 ML SYRINGE IV PRN (12:30)
[2025-01-13] MEDS ORDERED: MORPHINE 4 MG/ML 1 ML VIAL IV PRN (12:30)
[2025-01-13] MEDS ORDERED: LR 1,000 ML IV SCH (12:55)
[2025-01-13] MEDS ORDERED: ONDANSETRON 4MG/2ML VIAL IV PRN (12:55)
[2025-01-13 14:12] VITALS: BP 129/69; TEMP 97.7; O2SAT 97
== END 2025-01-13 14:22 | disposition home or self-care (01) ==
LOC: M SDC 10:27
PROVIDERS: ATTEND Otolaryngology
DX: J35.01 Chronic tonsillitis (principal); Z79.3 Long term (current) use of hormonal contraceptives
CPT/HCPCS: 42826; 81025; 88302; J0131; J1100; J2250; J2765; J3010